=== PATIENT | female | born 1975 | race Caucasian/White ===

== ENCOUNTER 2017-08-01 09:40 | Emergency (ER) | payer OTHER ==
[~2017-08-01] VITALS: Ht 162.6 cm; Wt 95.0 kg
[2017-08-01] MEDS ORDERED: HYDROCHLOROTHIA25 MG PO (10:47)
[2017-08-01] MEDS ORDERED: ASPIRIN81 M2 PO (10:48)
[2017-08-01] MEDS ORDERED: ATIVAN0.5 MG PO (10:48)
[2017-08-01] MEDS ORDERED: MULTIPLE VITAM1 EAC4 PO (10:48)
[2017-08-01] MEDS ORDERED: LEXAPRO20 MG PO (10:48)
[2017-08-01] MEDS ORDERED: PERCOCET 5/31 TABLET PO (15:21)
[2017-08-01 16:03] VITALS: BP 156/94
== END 2017-08-01 16:04 | disposition home or self-care (01) ==
LOC: EME 09:40
DX: S80.01XA Contusion of right knee, initial encounter (principal); S90.02XA Contusion of left ankle, initial encounter; M54.5 Low back pain; W01.0XXA Fall on same level from slipping, tripping and stumbling without subsequent striking against object, initial encounter; Y93.01 Activity, walking, marching and hiking; Y92.828 Other wilderness area as the place of occurrence of the external cause; F17.200 Nicotine dependence, unspecified, uncomplicated; Z86.69 Personal history of other diseases of the nervous system and sense organs
CPT/HCPCS: 72040; 72100; 73502; 73564; 73610; 99281; 99284; G8978 GP CM; G8979 GP CK; G8980 GP CM; G8987 CK; G8988 GO CJ; G8989 GO CK; J1885